=== PATIENT | male | born 1995 | race Caucasian/White ===

== ENCOUNTER 2017-05-29 12:48 | Observation (INO) ==
[2017-05-29] MEDS ORDERED: Acetaminophen 325 MG TABLET PO PRN (16:16)
[2017-05-29] MEDS ORDERED: Ondansetron 4 MG/2 ML VIAL IVP PRN (16:17)
[2017-05-29] MEDS ORDERED: Naloxone 0.4 MG/ML INJ IVP PRN (16:47)
[2017-05-29] MEDS ORDERED: MOM Conc 10 ML UD.LIQ PO PRN (16:47)
[2017-05-29] MEDS ORDERED: Mag Hydrox/Al Hydrox/Simeth 30 ML UDC PO PRN (16:47)
--- NOTE | 2017-05-29 16:47 | Internal Med History&Physical ---
Date of Encounter: 05/29/17 Time of Encounter: 16:47 Assessment and Plan (1) Sinus tachycardia Current visit: Yes Status: Acute Chart from [facility] reviewed. CT neg for PE. Most likely related to volume depletion related to viral illness versus drugs. Fluids ordered. Check echo tomorrow. (2) Viral syndrome Current visit: Yes Status: Acute Most likely has viral illness. Monospot ordered. PRN Tylenol (3) Drug ingestion Current visit: Yes Status: Acute Pt took unknown pills recently. Tox screen negative. Follow. Qualifiers: Encounter type: initial encounter Injury intent: accidental or unintentional Qualified Code(s): T50.901A - Poisoning by unspecified drugs, medicaments and biological substances, accidental (unintentional), initial encounter Internal Medicine - H&P: HPI Admitted From: Hospital to Hospital Transfer Plans for Post Hospital Care: Home History of present illness: Mr. ARITA is a 21 year old male with no PMHx presented to ED at [facility] with chest pain and tachycardia. He stated that he had abrupt onset of sharp leg, arm and chest pain earlier today. Last evening he felt feverish (not documented ). No cough. No diarrhea or constipation. In the ED he was found to be tachycardic to 140s. His WBC was elevated as well. After further questioning he admitted to taking "happy pills" a few days ago and said it was valium (he thought was it was Tylenol). He admits to feeling achy and tired. Father is at bedside and confirms story. Past Med Surg Social Fam HX - Past Medical History Attestation: Yes The following information was validated with the patient. Source: patient - Past Surgical History Surgical History: no surgical history - Social History Smoking Status: Current some day smoker Smokeless Tobacco Status: No Alcohol use: rarely Drug use: other - Family History Mother Living Status: Still Living (No history known.) Internal Medicine - H&P: Meds 3 Allergy/AdvReac Type Severity Reaction Status Date / Time No Known Allergies Allergy Verified 05/29/17 15:32 All Systems PM: A 10-system review of systems was performed and is negative for pertinent findings except as documented above in the HPI. - Constitutional Constitutional: fatigue, malaise, weakness - EENT Eyes: no diplopia, no loss of vision, no photophobia Ears: no decreased hearing Nose, mouth and throat: dry mouth, no nasal discharge, no sinus pain - Cardiovascular Cardiovascular ROS IM: palpitations, no dyspnea, no dyspnea on exertion, no irregular heart rhythm, no lightheadedness - Respiratory Respiratory: no dyspnea, no dyspnea on exertion, no pain on inspiration, no chest congestion - Gastrointestinal Gastrointestinal: no abdominal pain, no constipation, no heartburn, no melena, no nausea - Genitourinary Genitourinary ROS male: no dysuria, no nocturia, no penile discharge - Musculoskeletal Musculoskeletal ROS IM: myalgias, no arthralgias, no limited range of motion - Integumentary Integumentary IM: no erythema - Neurological Neurological ROS: no abnormal gait, no numbness, no tremor(s) - Psychiatric Psychiatric: no anxiety, no depression - Endocrine Endocrine IM: no excessive sweating, no flushing - Hematologic/Lymphatic Hematologic/Lymphatic: no easy bleeding - Allergic/Immunologic Allergic/Immunologic: no itchy eyes - Constitutional Vitals: Temp Pulse Resp BP Pulse Ox 99.1 F 117 18 123/82 98 05/29/17 14:57 05/29/17 14:57 05/29/17 14:57 05/29/17 14:57 05/29/17 14:57 General appearance: Present: A&O X 3, answers questions appropriately - Head Head exam: Present: atraumatic, normocephalic - Eye Eye exam: Present: EOMI, PERRL, conjuntiva pink - ENT ENT exam: Present: mucous membranes dry - Neck Neck exam general surgery: Present: lymphadenopathy (Some posterior nodes felt) . Absent: nuchal rigidity, thyromegaly - Respiratory Respiratory exam: Present: CTAB. Absent: rhonchi, wheezes - Cardiovascular Cardiovascular exam: Present: tachycardia. Absent: irregular rhythm, systolic murmur - GI/Abdominal GI/Abdominal exam: Present: soft. Absent: mass, tenderness - Extremities Exam Extremities exam: Present: warm. Absent: pedal edema, tenderness - Neurological Exam Neurological exam: Present: alert, oriented X3, no focal deficits - Skin Skin exam: Present: dry, warm. Absent: rash
[2017-05-29] MEDS: 0.9 % Sodium Chloride 1,000 ML IVC SCH (17:43)
[2017-05-30] MEDS: 0.9 % Sodium Chloride 1,000 ML IVC SCH
[2017-05-30 06:04] LABS: Basophils # 0.1 K/mcL (0.0-0.2); Basophils % 0.5 %; Eosinophils # 0.1 K/mcL (0.0-0.6); Hematocrit 39.1 % (37.5-50.1); Immature Granulocytes % 0.3 % (0-4); Lymphocytes # 1.8 K/mcL (0.6-4.6); Lymphocytes % 17.2 %; Mean Corpuscular HGB Conc 33.2 g/dL (31.6-35.5); Mean Corpuscular Hemoglobin 30.2 pg (28.0-33.3); Mean Corpuscular Volume 90.7 fL (83.0-100.0); Mean Platelet Volume 9.3 fL (9.4-12.4); Monocytes # 1.2 K/mcL (0.0-1.3); Monocytes % 11.4 %; Neutrophils # 7.3 K/mcL (1.6-8.9); Platelet Count 241 K/mcL (140-400); Red Blood Count 4.31 M/mcL (4.19-5.50); Red Cell Distribution Width 12.2 % (11.5-14.5); Segmented Neutrophils % 69.6 %
[2017-05-30 06:15] LABS: BUN/Creatinine Ratio 6 (6-26); Blood Urea Nitrogen 5 mg/dL (8-26); Calcium 8.7 mg/dL (8.6-10.8); Carbon Dioxide 26 mEq/L (19-29); Chloride 109 mEq/L (98-109); Glucose 102 mg/dL (70-99); Osmolality,Calculated 287 (280-300); Potassium 4.2 mEq/L (3.5-4.5); Sodium 140 mEq/L (136-145); eGFR For African Americans > 60 (> 60); eGFR For Non-African Americans > 60 (> 60)
--- NOTE | 2017-05-30 11:05 | Discharge Summary ---
Date of Encounter: 05/30/17 Time of Encounter: 11:04 - Discharge Diagnosis (1) Drug ingestion Priority: Secondary Status: Acute Qualifiers: Encounter type: initial encounter Injury intent: accidental or unintentional Qualified Code(s): T50.901A - Poisoning by unspecified drugs, medicaments and biological substances, accidental (unintentional), initial encounter (2) Sinus tachycardia Priority: Secondary Status: Acute (3) Viral syndrome Priority: Primary Status: Acute - Discharge Medications Home Medications: No Known Home Drugs 05/30/17 [History] Allergies/Adverse Reactions: 3 Allergy/AdvReac Type Severity Reaction Status Date / Time No Known Allergies Allergy Verified 05/29/17 15:32 Procedures/tests Complete & Pending: Procedures Performed prior 72 hours Category Date Time Status EV echocardiogram Routine Y 05/30/17 16:52 Completed Date of admission: 05/29/17 14:29 Primary care physician: PCP NONE - Patient Status Disposition: Home, Self-Care Condition: Good Functional capacity at discharge: independent ambulation Overall status at discharge: patient is back to baseline - Discharge Instructions Follow Up With: NONE,PCP [Primary Care Provider] - Additional Instructions: Stop smoking cigarettes and avoid all recreational drugs. - Diet and Activity Activity: increase activity as tolerated Diet: regular diet Hospital course: Mr. ARITA is a 21 year old male with no past medical history who presented to the emergency department at [place] for evaluation of chest pain, left-sided pain and subjective fevers. Upon further questioning he admitted to taking "happy pills" a few days ago and said it was valium (he thought was it was Tylenol). His initial workup was negative. He was placed in observation. He has been afebrile throughout the night. His heart rate is normal. Laboratory studies have normalized. White blood cell count is normal. Had an echocardiogram which showed normal ejection fraction, no valvular dysfunction. He is back to baseline and will be discharged home. He was advised to quit smoking and avoid all and any recreational drugs. - Time Spent with Patient Total time spent providing and/or coordinating discharge services: - Constitutional Vitals: Temp Pulse Resp BP Pulse Ox 98.1 F 71 16 116/74 99 05/30/17 06:49 05/30/17 06:49 05/30/17 06:49 05/30/17 06:49 05/30/17 06:49 General appearance: Present: A&O X 3, answers questions appropriately - Respiratory Respiratory exam: Present: CTAB. Absent: accessory muscle use, rales, rhonchi, wheezes - Cardiovascular Cardiovascular exam: Present: RRR, +S1, +S2. Absent: diastolic murmur, gallop, rubs, systolic murmur - GI/Abdominal GI/Abdominal exam: Present: normal bowel sounds, soft, no peritoneal signs. Absent: distended, tenderness
[2017-05-30 11:24] VITALS: BP 113/73
== END 2017-05-30 11:59 | disposition home or self-care (01) ==
LOC: 3BNU → EDBD → SUATTDRO 14:29
PROVIDERS: ADMIT Internal Medicine; ATTEND Internal Medicine